=== PATIENT | male | born 1985 | race Caucasian/White ===

== ENCOUNTER 2023-11-14 12:20 | Emergency (ER) | payer SELFPAY ==
[~2023-11-14] VITALS: Ht 141 cm; Wt 70.4 kg
[2023-11-14 12:26] VITALS: BP 134/89; PULSE 104; RESP 16; TEMP 97.3; O2SAT 98
[2023-11-14 13:43] LABS: BASOPHILS % (AUTO) 0.6 % (0.0-2.0); EOSINOPHILS # (AUTO) 0.1 K/uL (0-0.4); EOSINOPHILS % (AUTO) 1.3 % (0.0-4.0); HEMOGLOBIN 14.3 g/dL (12.0-18.0); LYMPHOCYTES # (AUTO) 1.2 K/uL (2.0-11.5); MEAN CORPUSCULAR HEMOGLOBIN 28 pg (27-31); MEAN CORPUSCULAR HGB CONC 33 g/dL (33-37); MONOCYTES # (AUTO) 0.4 K/uL (0.8-1.0); MONOCYTES % (AUTO) 8.3 % (1.7-9.3); NEUTROPHILS # (AUTO) 2.7 K/uL (1.8-7.7); NEUTROPHILS % (AUTO) 61.8 % (42.2-75.2); PLATELET COUNT (AUTO) 224 K/uL (140-450); RED BLOOD CELL COUNT(AUTO) 5.06 MIL/uL (4.20-6.10); RED CELL DISTRIBUTION WIDTH 13.8 % (11.6-13.7); WHITE BLOOD COUNT (AUTO) 4.3 K/uL (4.8-10.8)
[2023-11-14 14:01] LABS: ALBUMIN 3.4 g/dL (3.4-5.0); ANION GAP 14.4 (8-16); CALCIUM 8.7 mg/dL (8.5-10.1); CARBON DIOXIDE 25.2 mmol/L (21-32); CREATININE 1.3 mg/dL (0.6-1.3); POTASSIUM 4.6 mmol/L (3.5-5.1); TOTAL BILIRUBIN 0.6 mg/dL (0.0-1.0); TOTAL PROTEIN, SERUM 7.3 g/dL (6.4-8.2)
[2023-11-14] MEDS ORDERED: PIPERACILLIN/TAZOBACTAM 3.375 GM VIAL IV ONE (15:02)
[2023-11-14] MEDS: NACL 0.9% 1,000 ML IV ONE (15:19)
[2023-11-14] MEDS: ONDANSETRON 4 MG/2 ML VIAL IVP ONE (15:21)
[2023-11-14] MEDS: BACITRACIN OINT 500 UNITS/GM PKT TP ONE (15:21)
[2023-11-14] MEDS: PIPERACILLIN/TAZOBACTAM 3.375 GM in DEXTROSE 5% 50 ML IV ONE (15:22)
[2023-11-14] MEDS: MORPHINE SULFATE 4 MG/ML SYR IVP ONE (15:22)
[2023-11-14] MEDS ORDERED: MUPI2CRE22 TP (16:14)
[2023-11-14] MEDS ORDERED: CLIN300C2 PO (16:14)
[2023-11-14] MEDS: INSULIN REGULAR, HUMAN 100 UNIT/ML VIAL SUBQ ONE (16:24)
[2023-11-14 17:28] VITALS: BP 140/68; PULSE 81; RESP 16; TEMP 98.6; O2SAT 98
== END 2023-11-14 17:27 | disposition home or self-care (01) ==
LOC: EDSEX 12:20 → MED 12:20
DX: S90.822A Blister (nonthermal), left foot, initial encounter (principal); S90.821A Blister (nonthermal), right foot, initial encounter; L03.116 Cellulitis of left lower limb; L03.115 Cellulitis of right lower limb; E11.65 Type 2 diabetes mellitus with hyperglycemia; R03.0 Elevated blood-pressure reading, without diagnosis of hypertension; Z79.84 Long term (current) use of oral hypoglycemic drugs; Z79.2 Long term (current) use of antibiotics; Z79.899 Other long term (current) drug therapy; X58.XXXA Exposure to other specified factors, initial encounter; Y93.89 Activity, other specified; Y92.89 Other specified places as the place of occurrence of the external cause; Y99.0 Civilian activity done for income or pay
CPT/HCPCS: 36415; 73630; 80053; 82803; 82948; 85025; 85651; 86140; 87040; 87070; 87186; 87205; 90471; 90715; 96365; 96372; 96375; 99284; J1815; J2270; J2405; J2543; J7030; 87075